=== PATIENT | male | born 1985 | race African-American/Black ===

== ENCOUNTER 2019-05-15 17:42 | Emergency (ER) | payer OTHER ==
[~2019-05-15] VITALS: Ht 160 cm; Wt 47.2 kg
[~2019-05-15 17:42] MED LIST: NOHOMEMEDICATIONS
[2019-05-15 19:13] LABS: ABSOLUTE NEUTROPHILS 2.5 thou/uL (1.4-8.2); BASOPHILS 0.8 % (0.0-2.0); EOSINOPHILS 2.5 % (0.0-3.0); HEMATOCRIT 37.9 % (42.0-52.0); HEMOGLOBIN 12.7 gm/dL (14.0-18.0); LYMPHOCYTES 44.7 % (24.0-44.0); MCH 28.7 pg (26.0-34.0); MCHC 33.4 g/dL (28.0-37.0); MCV 85.8 fL (80.0-100.0); MONOCYTES 11.2 % (1.0-8.0); PLATELET COUNT 212 thou/uL (150-400); POLYS 40.8 % (36.0-66.0); RBC 4.41 mil/uL (4.50-6.00); RDW 13.4 % (10.5-14.5); WBC 6.1 thou/uL (4.0-11.0)
[2019-05-15 19:21] LABS: ANION GAP 10 mmol/L (7-16); BUN 21 mg/dL (7-18); CALCIUM 9.2 mg/dL (8.5-10.1); CHLORIDE 104 mmol/L (98-107); CO2 27 mmol/L (21-32); CREATININE 0.9 mg/dL (0.7-1.3); GLUCOSE 118 mg/dL (74-106); POTASSIUM 3.6 mmol/L (3.5-5.1); SODIUM 141 mmol/L (136-145)
[2019-05-15 19:31] LABS: TROPONIN-I <0.06 ng/mL (<0.06)
[2019-05-15 20:32] VITALS: BP 113/78
--- NOTE | 2019-05-17 18:18 | EKG ---
[address] [employer] [place] [address] ELECTROCARDIOGRAM REPORT Name: EDDIE CRENSHAW Room #: [facility]#: [id number] ������������������ Admission: 05/15/19 ������������������ Attend Phys: Discharge: 05/15/19 ������������������ Date of : 89 Report #: [id number] ����������������������������������������������������������������� [id number] THIS REPORT FOR: //name// [facility] ED Test Date: 2019-05-15 Test Time: 17:53:46 Pat Name: EDDIE CRENSHAW Department: Room: Gender: Business Account Leader: [facility] : 1985 Requested By: Alicia Hoyt Order Number: [id number] MD: Naren Ness Measurements Intervals [place]ams Rate: 81 P: 70 [place]: 131 QRS: 82 QRSD: 89 T: 41 QT: 357 QTc: 415 Interpretive Statements Sinus rhythm ST elev, probable normal early repol pattern No previous ECG available for comparison Electronically Signed On 05-17-2019 18:18:09 CDT by Naren Ness [email or web address] ��������������������������������������������� <ELECTRONICALLY SIGNED> ���������������������������������������� By: Naren Ness MD, [facility] ��������������������������������������������� 05/17/19 1818 1753 1753 Naren Ness MD, FACC /EPI
== END 2019-05-15 20:32 | disposition home or self-care (01) ==
LOC: ER 17:42
PROVIDERS: Emergency Medicine
DX: R07.89 Other chest pain (principal)